=== PATIENT | female | born 2000 | race Caucasian/White ===

== ENCOUNTER 2021-03-23 22:36 | Emergency (ER) | payer OTHER ==
[~2021-03-23 22:36] MED LIST: COLACE 100MG C100 MG PO; FOLIC ACID 1 MG1 MG PO; IBUPROFEN600 MG PO; KEPPRA750 MG PO; LORTAB 5-325 M1 EACH PO; PEPCID20 MG PO; PRENATAL VITAM1 EAC3 PO
[2021-03-23] MEDS ORDERED: CEPHALEXIN500 M1 PO (23:20)
== END 2021-03-23 23:31 | disposition home or self-care (01) ==
LOC: ER1 22:36
DX: O91.113 Abscess of breast associated with pregnancy, third trimester (principal); Z3A.36 36 weeks gestation of pregnancy
CPT/HCPCS: 99283

== ENCOUNTER 2021-04-09 13:10 | Outpatient (CLI) | payer OTHER ==
[~2021-04-09 13:10] MED LIST changes: +CEPHALEXIN500 M1 PO
[2021-04-09 14:49] LABS: HEMOGLOBIN 9.3 gm/dl (12.3-15.3); RED BLOOD COUNT 3.95 M/UL (4.00-5.10); WHITE BLOOD COUNT 12.3 K/UL (4.5-11.0)
[2021-04-10] MEDS ORDERED: TUMS DUAL ACTI1 EACH PO (12:00)
[2021-04-10] MEDS ORDERED: IBUPROFEN800 MG PO (12:06)
[2021-04-10] MEDS ORDERED: HYDROCODONE-AC1 EAC1 PO (12:06)
[2021-04-10] MEDS ORDERED: DOCUSATE SODIU100 MG PO (12:06)
== END 2021-04-09 14:41 | disposition home or self-care (01) ==
LOC: GENOP 13:10
PROVIDERS: Obstetrics & Gynecology
DX: Z01.812 Encounter for preprocedural laboratory examination (principal); O34.219 Maternal care for unspecified type scar from previous cesarean delivery; N85.8 Other specified noninflammatory disorders of uterus; Z20.822 Contact with and (suspected) exposure to COVID-19
CPT/HCPCS: 36415; 81001; 85025; 86850; 86900; 86901; U0002

== ENCOUNTER 2021-04-10 04:45 | Inpatient (IN) | payer OTHER ==
[~2021-04-10] VITALS: Ht 165.1 cm; Wt 120.7 kg
[2021-04-10] MEDS ORDERED: TUMS DUAL ACTI1 EACH PO (12:00)
[2021-04-10] MEDS ORDERED: IBUPROFEN800 MG PO (12:06)
[2021-04-10] MEDS ORDERED: DOCUSATE SODIU100 MG PO (12:06)
[2021-04-10] MEDS ORDERED: HYDROCODONE-AC1 EAC1 PO (12:06)
[2021-04-11 07:02] LABS: HEMOGLOBIN 7.6 gm/dl (12.3-15.3)
== END 2021-04-12 17:33 | disposition home or self-care (01) | DRG 788 ==
LOC: OB 04:45
PROVIDERS: ADMIT Obstetrics & Gynecology
PROC: 30233N1 Transfusion of Nonautologous Red Blood Cells into Peripheral Vein, Percutaneous Approach (ICD-10-PCS; 2021-04-10)
PROC: 3E033VJ Introduction of Other Hormone into Peripheral Vein, Percutaneous Approach (ICD-10-PCS; 2021-04-10)
PROC: 3E0DXGC Introduction of Other Therapeutic Substance into Mouth and Pharynx, External Approach (ICD-10-PCS; 2021-04-10)
PROC: 10D00Z1 Extraction of Products of Conception, Low, Open Approach (ICD-10-PCS; principal; 2021-04-10 10:26)
DX: O34.211 Maternal care for low transverse scar from previous cesarean delivery (principal); O99.02 Anemia complicating childbirth; D50.9 Iron deficiency anemia, unspecified; O99.214 Obesity complicating childbirth; E66.9 Obesity, unspecified; O99.334 Smoking (tobacco) complicating childbirth; O99.344 Other mental disorders complicating childbirth; F41.8 Other specified anxiety disorders; Z20.822 Contact with and (suspected) exposure to COVID-19; Z37.0 Single live birth; Z3A.39 39 weeks gestation of pregnancy; Z86.69 Personal history of other diseases of the nervous system and sense organs; Z88.2 Allergy status to sulfonamides; Z98.890 Other specified postprocedural states; H66.92 Otitis media, unspecified, left ear; O99.72 Diseases of the skin and subcutaneous tissue complicating childbirth; O99.892 Other specified diseases and conditions complicating childbirth
CPT/HCPCS: 36415; 80307; 81001; 82800; 85014; 85018; 85025; 86850; 86900; 86901; 90715; C9113; J0690; J2210; J2250; J2274; J2405; J2590; J3010; J7120; U0002

== ENCOUNTER 2021-07-18 18:05 | Emergency (ER) | payer OTHER ==
[~2021-07-18 18:05] MED LIST changes: +DOCUSATE SODIU100 MG PO; +HYDROCODONE-AC1 EAC1 PO; +IBUPROFEN800 MG PO; +TUMS DUAL ACTI1 EACH PO
== END 2021-07-18 19:24 | disposition left against medical advice (07) ==
LOC: ER1 18:05
DX: Z53.21 Procedure and treatment not carried out due to patient leaving prior to being seen by health care provider (principal)

== ENCOUNTER 2021-12-03 21:11 | Emergency (ER) | payer OTHER | END 2021-12-03 22:10 | disposition left against medical advice (07) | LOC: ER1 21:11 | DX: M25.561 Pain in right knee (principal); M54.9 Dorsalgia, unspecified | CPT/HCPCS: 99281 ==